=== PATIENT | female | born 2000 ===

== ENCOUNTER 2019-06-23 15:00 | Inpatient (IN) | payer OTHER ==
[~2019-06-23] VITALS: Ht 160 cm; Wt 60.3 kg
[2019-07-05] MEDS ORDERED: PRENATAL TABLE1 EAC1 PO (23:03)
[2019-07-05] MEDS ORDERED: FOLIC ACID PO (23:04)
[2019-07-05] MEDS ORDERED: IRON PO (23:04)
[2019-07-05] MEDS ORDERED: VITAMIN B PO (23:05)
[2019-07-07] MEDS ORDERED: B COMPLEX1 EACH (15:07)
[2019-07-07] MEDS ORDERED: FOLIC ACID0.8 M1 (15:07)
[2019-07-07] MEDS ORDERED: IRON236 MG (15:07)
== END 2019-07-08 14:26 | DRG 807 ==
LOC: LDR 07-05 22:09 → OB/GYN 07-05 22:09
PROVIDERS: ADMIT Obstetrics & Gynecology
PROC: 10E0XZZ Delivery of Products of Conception, External Approach (ICD-10-PCS; principal; 2019-07-05)
PROC: 4A1HXCZ Monitoring of Products of Conception, Cardiac Rate, External Approach (ICD-10-PCS; 2019-07-05)
PROC: 0UQMXZZ Repair Vulva, External Approach (ICD-10-PCS; 2019-07-05)
DX: O71.82 Other specified trauma to perineum and vulva (principal); Z37.0 Single live birth; Z3A.39 39 weeks gestation of pregnancy

== ENCOUNTER 2021-11-09 09:56 | Outpatient (CLI) | payer OTHER ==
[~2021-11-09 09:56] MED LIST: B COMPLEX1 EACH; FOLIC ACID PO; FOLIC ACID0.8 M1; IRON PO; IRON236 MG; PRENATAL TABLE1 EAC1 PO; VITAMIN B PO
== END 2021-11-09 10:51 | disposition home or self-care (01) ==
LOC: PRENATAL 09:56
PROVIDERS: ATTEND Obstetrics & Gynecology Maternal & Fetal Medicine
DX: O35.0XX0 Maternal care for (suspected) central nervous system malformation in fetus, not applicable or unspecified (principal); Z36.0 Encounter for antenatal screening for chromosomal anomalies; Z3A.24 24 weeks gestation of pregnancy

== ENCOUNTER 2021-11-28 08:14 | Outpatient (CLI) | payer OTHER | END 2021-11-28 09:20 | disposition home or self-care (01) | LOC: PRENATAL 08:14 | PROVIDERS: ATTEND Obstetrics & Gynecology Maternal & Fetal Medicine | DX: O35.0XX0 Maternal care for (suspected) central nervous system malformation in fetus, not applicable or unspecified (principal); O35.3XX0 Maternal care for (suspected) damage to fetus from viral disease in mother, not applicable or unspecified; Z3A.26 26 weeks gestation of pregnancy ==

== ENCOUNTER 2022-01-17 10:25 | Emergency (ER) | payer OTHER ==
[~2022-01-17] VITALS: Ht 160 cm; Wt 63.5 kg
[2022-01-17] MEDS ORDERED: OSEL75CA PO (13:03)
== END 2022-01-17 13:09 | disposition home or self-care (01) ==
LOC: ER 10:25
DX: O98.513 Other viral diseases complicating pregnancy, third trimester (principal); Z3A.34 34 weeks gestation of pregnancy; B34.9 Viral infection, unspecified; Z20.822 Contact with and (suspected) exposure to COVID-19

== ENCOUNTER 2022-02-15 14:00 | Inpatient (IN) | payer OTHER ==
[~2022-02-15] VITALS: Ht 160 cm; Wt 2.7 kg
[~2022-02-15 14:00] MED LIST changes: +OSEL75CA PO
[2022-03-09] MEDS ORDERED: IBU800 MG PO (14:14)
[2022-03-09] MEDS ORDERED: COLACE100 MG PO (14:14)
== END 2022-03-09 14:33 | disposition home or self-care (01) | DRG 785 ==
LOC: OB/GYN 03-01 14:00 → LDR 03-06 06:20 → OB/GYN 03-06 06:20
PROVIDERS: ADMIT Obstetrics & Gynecology; ATTEND Obstetrics & Gynecology
PROC: 0UB70ZZ Excision of Bilateral Fallopian Tubes, Open Approach (ICD-10-PCS; 2022-03-06)
PROC: 4A1HXCZ Monitoring of Products of Conception, Cardiac Rate, External Approach (ICD-10-PCS; 2022-03-06)
PROC: 10D00Z1 Extraction of Products of Conception, Low, Open Approach (ICD-10-PCS; principal; 2022-03-06 21:00)
DX: O61.0 Failed medical induction of labor (principal); Z3A.40 40 weeks gestation of pregnancy; Z37.0 Single live birth; Z20.822 Contact with and (suspected) exposure to COVID-19; Z30.2 Encounter for sterilization